=== PATIENT | male | born 1975 | race Caucasian/White ===

== ENCOUNTER 2017-07-21 04:13 | Observation (INO) ==
[2017-07-21] MEDS ORDERED: methylPREDNISolone 125 MG/2 ML VIAL IVP ONE (04:45)
[2017-07-21] MEDS ORDERED: Ipratropium/Albuterol Neb 3 ML IH ONE (04:45)
[2017-07-21 04:55] LABS: Basophils # 0.1 K/mcL (0.0-0.2); Basophils % 0.8 %; Eosinophils # 0.3 K/mcL (0.0-0.6); Hematocrit 44.2 % (37.5-50.1); Hemoglobin 14.6 g/dL (12.9-16.9); Immature Granulocytes % 0.4 % (0-4); Lymphocytes # 4.3 K/mcL (0.6-4.6); Lymphocytes % 32.3 %; Mean Corpuscular Hemoglobin 28.4 pg (28.0-33.3); Mean Platelet Volume 9.3 fL (9.4-12.4); Monocytes # 0.8 K/mcL (0.0-1.3); Monocytes % 6.3 %; Neutrophils # 7.7 K/mcL (1.6-8.9); Platelet Count 383 K/mcL (140-400); Red Blood Count 5.14 M/mcL (4.19-5.50); Red Cell Distribution Width 12.4 % (11.5-14.5); Segmented Neutrophils % 58.2 %
[2017-07-21 05:00] LABS: Activated Partial Thrombo Time 27.5 Seconds (26.0-36.0); BUN/Creatinine Ratio 15 (6-26); Blood Urea Nitrogen 15 mg/dL (8-26); Calcium 9.2 mg/dL (8.6-10.8); Carbon Dioxide 28 mEq/L (19-29); Chloride 104 mEq/L (98-109); Glucose 116 mg/dL (70-99); Osmolality,Calculated 292 (280-300); Potassium 4.1 mEq/L (3.5-4.5); Sodium 140 mEq/L (136-145); eGFR For African Americans > 60 (> 60); eGFR For Non-African Americans > 60 (> 60)
--- NOTE | 2017-07-21 05:49 | Emergency Department Note ---
Disposition Clinical Impression: Chest pain, rule out acute myocardial infarction Disposition: Admitted As Inpatient Condition: Good Instructions: Chest Pain (ED) Forms: ED Satisfaction Letter Chest Pain HPI - General Chief Complaint: ED Cardiac Arrest/CPR Stated Complaint: chest pain Time Seen by Provider: 07/21/17 04:24 Source: patient Limitations: no limitations Vital Signs Reviewed: Yes Nursing Notes Reviewed: Yes - History of Present Illness HPI Narrative: 41-year-old male presents emergency Department with acute onset chest pain patient describes the pain as a left-sided sharp pressure that radiates to his left jaw and left arm, no change with movement. Patient denies associated diaphoresis although he states that he feels mildly short of breath with exertion. Patient states his pain improved significantly after administration of aspirin and nitroglycerin by EMS. No history of cardiac disease and has not had a previous evaluation. Patient denies recent fever, chills, nausea, vomiting, diarrhea. Patient has a history of shortness of breath as well as a history of COPD exacerbation. Patient states that his symptoms today feel different from his previous COPD exacerbations. Severity scale (1-10): 4 - Related Data Previous Rx's Medication Instructions Recorded Azithromycin [Azithromycin 6-Tab 250 mg PO PER PKG DI #6 tab 12/29/16 Pack] predniSONE [PredniSONE] 40 mg PO DAILY #5 tablet 12/29/16 Allergies Allergy/AdvReac Type Severity Reaction Status Date / Time No Known Allergies Allergy Verified 07/21/17 04:14 All systems ED: reviewed and negative except as stated. Review of Systems: As Per HPI Constitutional: Denies: fever, chills, weakness Cardiovascular: Reports: chest pain, dyspnea on exertion. Denies: palpitations , orthopnea, syncope, paroxysmal nocturnal dyspnea Respiratory: Reports: wheezes. Denies: cough, dyspnea Chest Pain PMH - Past Medical History Medical history: Reports: COPD Psychiatric history: Reports: no psych history - Social History Smoking Status: Current every day smoker Alcohol use: Reports: none Drug use: Reports: none Physical Exam General: Alert and in no acute distress Skin: Warm, dry, intact Head: Normocephalic and atraumatic Neck: Supple, trachea midline and no tenderness Cardiovascular: RRR, no murmur, normal perfusion Respiratory: Wheezing present on bilateral posterior lung mancini. Noted no retractions present. Musculoskeletal: Normal strength, no tenderness, swelling or deformity GI: Soft, nontender, nondistended. Bowel sounds present Neuro: A&O to person, place, time and situation. No focal deficits noted on exam Psychiatric: cooperative and appropriate mood and affect. - General Limitations: no limitations General appearance: alert, in no apparent distress Course Vital Signs Temperature 97.8 F 07/21/17 04:18 Pulse Rate 78 07/21/17 04:18 Respiratory Rate 16 07/21/17 04:18 Blood Pressure 121/91 07/21/17 04:18 O2 Sat by Pulse Oximetry 96 07/21/17 04:18 Temperature 97.8 F 07/21/17 04:18 Pulse Rate 83 07/21/17 05:36 Respiratory Rate 16 07/21/17 05:36 Blood Pressure 124/75 07/21/17 05:36 O2 Sat by Pulse Oximetry 92 07/21/17 05:39 Oxygen Delivery Oxygen Delivery Room Air Chest Pain - MDM Narrative Medical decision making narrative: Patient will be admitted to the hospital for further care and evaluation of his acute onset chest pain to rule out ACS. Initial troponin negative. EKG did not show evidence of STEMI. Patient given Solu-Medrol and breathing treatment for wheezing present on exam and likely COPD exacerbation. - Medical Records Medical records reviewed: Yes I reviewed the patient's medical records. - Lab Data Lab results reviewed: Yes I reviewed the patient's lab results. Result diagrams: 07/21/17 04:23 07/21/17 04:23 Lab Results 07/21/17 07/21/17 07/21/17 Range/Units 04:23 04:23 04:23 WBC 13.2 H (4.3-11.1) K/mcL RBC 5.14 (4.19-5.50) M/mcL Hgb 14.6 (12.9-16.9) g/dL Hct 44.2 (37.5-50.1) % MCV 86.0 (83.0-100.0) fL MCH 28.4 (28.0-33.3) pg MCHC 33.0 (31.6-35.5) g/dL RDW 12.4 (11.5-14.5) % Plt Count 383 (140-400) K/mcL MPV 9.3 L (9.4-12.4) fL Immature Gran % 0.4 (0-4) % Seg Neutrophils % 58.2 % Lymphocytes % 32.3 % Monocytes % 6.3 % Eosinophils % 2.0 % Basophils % 0.8 % Neutrophils # 7.7 (1.6-8.9) K/mcL Lymphocytes # 4.3 (0.6-4.6) K/mcL Monocytes # 0.8 (0.0-1.3) K/mcL Eosinophils # 0.3 (0.0-0.6) K/mcL Basophils # 0.1 (0.0-0.2) K/mcL PT 11.0 (9.4-12.1) Seconds INR 1.0 APTT 27.5 (26.0-36.0) Seconds Sodium 140 (136-145) mEq/L Potassium 4.1 (3.5-4.5) mEq/L Chloride 104 (98-109) mEq/L Carbon Dioxide 28 (19-29) mEq/L BUN 15 (8-26) mg/dL Creatinine 0.97 (0.72-1.25) mg/dL Est GFR ( Amer) > 60 (> 60) Est GFR (Non-Af Amer) > 60 (> 60) BUN/Creatinine Ratio 15 (6-26) Glucose 116 H (70-99) mg/dL Calculated Osmolality 292 (280-300) Calcium 9.2 (8.6-10.8) mg/dL Troponin I (0-0.03) ng/mL 07/21/17 Range/Units 04:23 WBC (4.3-11.1) K/mcL RBC (4.19-5.50) M/mcL Hgb (12.9-16.9) g/dL Hct (37.5-50.1) % MCV (83.0-100.0) fL MCH (28.0-33.3) pg MCHC (31.6-35.5) g/dL RDW (11.5-14.5) % Plt Count (140-400) K/mcL MPV (9.4-12.4) fL Immature Gran % (0-4) % Seg Neutrophils % % Lymphocytes % % Monocytes % % Eosinophils % % Basophils % % Neutrophils # (1.6-8.9) K/mcL Lymphocytes # (0.6-4.6) K/mcL Monocytes # (0.0-1.3) K/mcL Eosinophils # (0.0-0.6) K/mcL Basophils # (0.0-0.2) K/mcL PT (9.4-12.1) Seconds INR APTT (26.0-36.0) Seconds Sodium (136-145) mEq/L Potassium (3.5-4.5) mEq/L Chloride (98-109) mEq/L Carbon Dioxide (19-29) mEq/L BUN (8-26) mg/dL Creatinine (0.72-1.25) mg/dL Est GFR ( Amer) (> 60) Est GFR (Non-Af Amer) (> 60) BUN/Creatinine Ratio (6-26) Glucose (70-99) mg/dL Calculated Osmolality (280-300) Calcium (8.6-10.8) mg/dL Troponin I 0.00 (0-0.03) ng/mL - Radiology Data Radiology results reviewed: Yes I reviewed the patient's radiology results. - EKG Data EKG attestation: Yes I reviewed and interpreted this EKG. EKG results narrative: ECG - interpreted by ED physician. Rate 80 to, normal sinus rhythm, no STEMI, DC, QT intervals, and QRS within normal limits Heart Score - Score History: Moderately Suspicious EKG: Normal Age: Less than 45 Risk Factors: Equal/Greater than 3 risk factor or history of atherosclerotic disease Troponin: Less than normal limit HEART Score Total: 3
[2017-07-21] MEDS ORDERED: Acetaminophen 325 MG TABLET PO PRN (07:33)
[2017-07-21] MEDS ORDERED: Naloxone 0.4 MG/ML INJ IVP PRN (07:33)
[2017-07-21] MEDS ORDERED: Regadenoson 0.4 MG/5 ML SYRINGE IVP ONE (08:51)
[2017-07-21 10:26] LABS: Chol/HDL Ratio 5.8 (0-4.9); Cholesterol 191 mg/dL (< 200); HDL Cholesterol 33 mg/dL (40-59); LDL Cholesterol,Calculated 130 mg/dL (0-99); Triglycerides 138 mg/dL (< 150)
[2017-07-21] MEDS ORDERED: Ipratropium/Albuterol Neb 3 ML IH PRN (11:23)
--- NOTE | 2017-07-21 11:23 | Internal Med History&Physical ---
Date of Encounter: 07/21/17 Time of Encounter: 08:00 Assessment and Plan (1) Chest pain Current visit: Yes Status: Acute Left-sided chest pain. Troponins have been negative. EKG shows sinus rhythm with sinus arrhythmia. No acute ST segment changes. Plan for cardiac stress test. Check lipid profile. Qualifiers: Chest pain type: precordial pain Qualified Code(s): R07.2 - Precordial pain (2) Chest pain, rule out acute myocardial infarction Current visit: Yes Status: Acute (3) COPD (chronic obstructive pulmonary disease) Current visit: Yes Status: Chronic Patient has bilateral wheezing. We will treat with bronchodilators. Chest x- ray shows no acute infiltrate. Qualifiers: COPD type: chronic bronchitis Chronic bronchitis type: simple Qualified Code(s): J41.0 - Simple chronic bronchitis Internal Medicine - H&P: HPI Chief complaint: Chest pain Admitted From: Emergency Dept Plans for Post Hospital Care: Home History of present illness: Mr. Burton is a 41 year old male patient with a history of essential hypertension that she not be currently being treated presented to the ER with complaints of chest pain. Began overnight. Patient woke up with it. Pain was on the left side of the chest and nonradiating but he did have some numbness involving his left forearm. His pain did not improve with nitroglycerin. No relation to activity. Not aggravated with deep breaths. He has never had similar kind of pain before. No prior history of heart disease. He is a chronic smoker. No palpitations. No shortness of breath. No prior stress test. Past Med Surg Social Fam HX - Past Medical History Attestation: Yes The following information was validated with the patient. Source: patient Medical history: COPD, hypertension Psychiatric history: no psych history - Past Surgical History Surgical History: no surgical history - Social History Smoking Status: Current every day smoker Packs per day: 1/4 per day Smokeless Tobacco Status: No Alcohol use: none Drug use: none - Additional Family History Additional family history: Reviewed and found to be non contributory to current symptoms Internal Medicine - H&P: Meds Albuterol Sulfate [Ventolin Hfa] 2 puff IH Q4-6H PRN 07/21/17 [History] Buprenorphine HCl/Naloxone HCl [Buprenorphin-Naloxon 8-2 mg Sl] 1 tab PO BID 06/29 [History] Fluticasone/Vilanterol [Breo Ellipta 100-25 Mcg INH] 1 puff IH DAILY 07/21/17 [ History] Ipratropium [ATROVENT Inhaler] 2 puff IH QID 07/21/17 [History] Multivit-Min/FA/Lycopen/Lutein [A Thru Z Select Multivit Tab] 1 tab PO DAILY 06/29 [History] 3 Allergy/AdvReac Type Severity Reaction Status Date / Time No Known Allergies Allergy Verified 07/21/17 04:14 All Systems PM: A 10-system review of systems was performed and is negative for pertinent findings except as documented above in the HPI. - Constitutional Constitutional: no chills, no fever(s), no night sweats - EENT Eyes: no change in vision, no discharge, no pain, no photophobia Ears: no ear discharge, no ear pain, no tinnitus Nose, mouth and throat: no dysphagia, no nasal discharge, no neck pain, no sore throat - Cardiovascular Cardiovascular ROS IM: chest pain, no diaphoresis, no dyspnea, no lightheadedness, no palpitations, no syncope - Respiratory Respiratory: no cough, no dyspnea, no wheezing, no excessive phlegm production - Gastrointestinal Gastrointestinal: no abdominal pain, no diarrhea, no hematemesis, no hematochezia, no melena, no nausea, no vomiting - Musculoskeletal Musculoskeletal ROS IM: no numbness, no tingling - Integumentary Integumentary IM: no rash, no unusual bruising - Neurological Neurological ROS: numbness (left forearm associated with chest pain), no confusion, no convulsions, no focal weakness, no tingling, no tremor(s) - Hematologic/Lymphatic Hematologic/Lymphatic: no easy bruising - Constitutional Vitals: Temp Pulse Resp BP Pulse Ox 98.3 F 74 16 110/69 92 07/21/17 06:27 07/21/17 06:27 07/21/17 06:27 07/21/17 06:27 07/21/17 06:27 General appearance: Present: cooperative, A&O X 3, answers questions appropriately - Respiratory Respiratory exam: Present: CTAB. Absent: accessory muscle use, rales, rhonchi, wheezes - Cardiovascular Cardiovascular exam: Present: RRR, +S1, +S2. Absent: diastolic murmur, gallop, rubs, systolic murmur - GI/Abdominal GI/Abdominal exam: Present: normal bowel sounds, soft, no peritoneal signs. Absent: distended, tenderness - Extremities Exam Extremities exam: Present: warm, radial pulses palpable and symmetrical. Absent : calf tenderness, cyanotic, pedal edema - Neurological Exam Neurological exam: Present: alert, oriented X3, no focal deficits. Absent: facial droop, speech deficit - Skin Skin exam: Present: dry, intact Internal Med - H&P Results - Labs CBC & Chem 7: 07/21/17 04:23 07/21/17 04:23 Labs: Cardiac Enzymes 07/21/17 Range/Units 08:27 Troponin I 0.00 (0-0.03) ng/mL
--- NOTE | 2017-07-21 12:58 | Nuclear Medicine Stress Report ---
Regadenoson Nuclear Stress Name: Gunner Burton Date of Study: 07/21/2017 Date: 1975 Ht: 72.0 in Medical Record#: [id number] Age: 41 Wt: 210.0 lb Gender: Male Order #: [id number] Location: [facility] Room: [facility] Supervising Provider: Stacie Pérez CNP Reading Physician: Willian Beckford DO, FACC, KRIS, BRIAN Ordering Physician: Faustino Tolliver MD Stress Technologist: Clinton Miranda MATTE CUTTER, CCT Manager Simulation: Drake Ford Indications: Chest Pain Impression: Pharmacologic stress ECG is negative for ischemia at level of heart rate achieved. Chest pain reported prior to (4/) and during the study (8). No chest discomfort reported in recovery. Gated EF = 66%. Medium-sized, mild to moderate intensity, fixed perfusion defect throughout the inferior segments. Perfusion worse on rest imaging and wall motion appears normal. These findings are consistent with artifact. Perfusion imaging was negative for ischemia or infarct. History: History of Smoking Stress Test Summary: Stress Test Type: Pharmacologic Regadenoson 0.4mg/5ml given IV Baseline Information: Initial Heart Rate: 94 Blood Pressure: 130/90 Stress Information: Test Terminated Due to (primary): As per protocol Maximum Blood Pressure: 116/76 Maximum Heart Rate: 110 Percent Maximum Heart Rate Achieved: 62 Double Product: [id number] METS Reached: 1 Symptoms: Chest pain Nuclear Summary: SPECT myocardial perfusion imaging using Tc99m Sestamibi given intravenously was performed at rest and following cardiac stress testing. The resting images were obtained following initial dose of 9.4 mCi. Following stress an additional dose of 34.2 mCi was given at peak exercise or 30 seconds post regadenoson infusion. Medication Given: Time Medication Dose Units Route Findings: Stress Note * Resting ECG demonstrated normal sinus rhythm. * No baseline arrhythmias were noted. * Pharmacologic stress ECG is negative for ischemia at level of heart rate achieved. * No arrhythmias were noted during stress. * Chest pain reported prior to (4/10) and during the study (8/). No chest discomfort reported in recovery. Hemodynamic responses * Normal hemodynamic responses to pharmacologic stress. Study Quality * Study quality is average. Gated EF % * Gated EF = 66%. Left Ventricle * The left ventricle is not dilated. * LVEDV = 128 mL. NORMALS * Normal wall motion. Inferior Perfusion Rest * The inferior segments show a moderate reduction in perfusion. Compared to stress, perfusion worse on rest imaging, which is suggestive of artifact. Inferior Perfusion Stress * The inferior segments show a mild to moderate reduction in perfusion. TID * No evidence of transient ischemic dilatation. TID ratio * TID ratio = 1.06. Lung Uptake * There is no evidence of increase lung uptake. Updated by Willian Beckford DO, FACAlesha, KRIS, FASGENESIS on 07/21/2017 12:52:08 PM electronically signed on 07/21/2017 12:53:02 PM with status of Final
--- NOTE | 2017-07-21 13:20 | Electrocardiograph Report ---
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
[2017-07-21] MEDS ORDERED: Ketorolac 30 MG/ML VIAL IVP PRN (13:44)
[2017-07-21 14:20] VITALS: BP 119/69
--- NOTE | 2017-07-21 14:40 | Discharge Summary ---
Date of Encounter: 07/21/17 Time of Encounter: 14:36 - Discharge Diagnosis (1) Chest pain Priority: Primary Status: Acute Qualifiers: Chest pain type: precordial pain Qualified Code(s): R07.2 - Precordial pain (2) Chest pain, rule out acute myocardial infarction Priority: Secondary Status: Acute (3) COPD (chronic obstructive pulmonary disease) Priority: Secondary Status: Chronic Qualifiers: COPD type: chronic bronchitis Chronic bronchitis type: simple Qualified Code(s): J41.0 - Simple chronic bronchitis - Discharge Medications Prescriptions: Ibuprofen [Motrin] 800 mg PO Q8HR #30 tablet Famotidine [Pepcid] 20 mg PO BID #20 tablet Home Medications: Albuterol Sulfate [Ventolin Hfa] 2 puff IH Q4-6H PRN 07/21/17 [History] Buprenorphine HCl/Naloxone HCl [Buprenorphin-Naloxon 8-2 mg Sl] 1 tab PO BID 06/29 [History] Famotidine [Pepcid] 20 mg PO BID #20 tablet 07/21/17 [Rx] Fluticasone/Vilanterol [Breo Ellipta 100-25 Mcg INH] 1 puff IH DAILY 07/21/17 [ History] Ibuprofen [Motrin] 800 mg PO Q8HR #30 tablet 07/21/17 [Rx] Ipratropium [ATROVENT Inhaler] 2 puff IH QID 07/21/17 [History] Multivit-Min/FA/Lycopen/Lutein [A Thru Z Select Multivit Tab] 1 tab PO DAILY 06/29 [History] Allergies/Adverse Reactions: 3 Allergy/AdvReac Type Severity Reaction Status Date / Time No Known Allergies Allergy Verified 07/21/17 04:14 Procedures/tests Complete & Pending: Procedures Performed prior 72 hours Category Date Time Status NM chris perf SPECT multi [NM] Routine Exams 07/21/17 10:00 Taken SP pharm nuclear stress Routine Y 07/21/17 10:00 Completed Date of admission: 07/21/17 05:57 Primary care physician: PCP NONE Discharging clinician: Faustino Tolliver Anticipated date of discharge: 07/21/17 - Patient Status Disposition: Home, Self-Care Condition: Good Functional capacity at discharge: independent ambulation Overall status at discharge: patient is progressing back to baseline - Discharge Instructions Instructions: Chest Pain (DC), Chronic Obstructive Pulmonary Disease (DC) Follow Up With: NONE,PCP [Primary Care Provider] - (In 1-2 weeks) Additional Instructions: Follow-up appointments: If there is not an appointment listed below, please call your physician and schedule a follow-up appointment. If you have congestive heart failure and your symptoms return, make an appointment with your physician. Medication List: Carry an up to date list of medications you are taking at all time. We have given you an updated medication list including any new medications that you have been prescribed. Please provide that list to your primary provider Symptoms: If your condition changes or you experience any of the following symptoms, notify your physician immediately: Unusual or worsening pain, fever, persistent nausea and vomiting, bleeding, increase in swelling (especially in your legs), sudden weight gain, extreme dizziness, chest pain, increased drainage or redness from a wound or incision. Go to the emergency department if you experience a problem with breathing. Weights: If you have a history of swelling or shortness of breath, weigh yourself daily and notify your physician if you have a weight gain of two or more pounds in one day or 5 or more pounds in a week. If you experience any of the warning signs for stroke: Sudden numbness or weakness of the face, arm or leg; especially on one side of the body, sudden confusion, trouble speaking or understanding, sudden trouble seeing in one or both eyes, sudden trouble walking, dizziness, loss of balance or coordination, sudden sever headache with no cause; Call 911 or go to the emergency room. Stroke is a medical emergency. Some risk factors for stroke: Age, cigarette smoking, diabetes, excessive alcohol consumption, family history , high blood pressure, overweight, physical inactivity, prior stroke, heart attack, diagnosis of carotid artery stenosis or other artery disease. If you smoke, STOP: Smoking or tobacco use significantly increases your risk of heart and lung disease. Your chance of disease greatly increases if you continue to smoke. For more information, call the [place] tobacco quit line for smoking cessation - QUIT-NOW ( ) - Diet and Activity Activity: increase activity as tolerated Diet: advance to your usual diet, low fat, low cholesterol, low salt diet Hospital course: Mr. Burton is a 41 year old male patient with history of essential hypertension not on any medications, COPD presented to the ER with complaints of chest pain. Pain was left-sided. Not related to any activity. No aggravating or relieving factors. Not related to deep breaths. His EKG did not show any acute ST segment changes. His troponins were negative. Patient then underwent cardiac stress test which was negative for any acute ischemia. He had a fixed defect which was most likely an artifact as it was worse on resting images. The patient's pain is most likely musculoskeletal in origin. Will treat him with NSAIDs. He can follow-up with his primary care provider for further management. Patient does have COPD and did have bilateral end expiratory wheezing. He already is on medications for this at home including Atrovent, albuterol and when necessary Lipitor. He will continue taking his medications. He did not have any other signs or features suggestive of acute COPD exacerbation. Patient did have elevated blood pressure when EMS went to his home but his blood pressure here has been well controlled. - Time Spent with Patient Total time spent providing and/or coordinating discharge services: Less than 30 minutes (20 min) - Constitutional Vitals: Temp Pulse Resp BP Pulse Ox 98.1 F 84 16 119/69 90 07/21/17 14:20 07/21/17 14:20 07/21/17 14:20 07/21/17 14:20 07/21/17 14:20 General appearance: Present: cooperative, A&O X 3, answers questions appropriately - Respiratory Respiratory exam: Present: prolonged expiratory phase, wheezes. Absent: accessory muscle use, rales, rhonchi - Cardiovascular Cardiovascular exam: Present: RRR, +S1, +S2. Absent: diastolic murmur, gallop, rubs, systolic murmur - GI/Abdominal GI/Abdominal exam: Present: normal bowel sounds, soft, no peritoneal signs. Absent: distended, tenderness
[2017-07-21 15:36] LABS: Hemoglobin A1C 5.4 %
== END 2017-07-21 16:32 | disposition home or self-care (01) ==
LOC: EMEROO 04:13 → 3BNU 04:13 → SUATTDRO 05:57 → 3BNU 06:14
PROVIDERS: ADMIT Internal Medicine; ATTEND Internal Medicine